=== PATIENT | male | born 1985 | race Caucasian/White ===

== ENCOUNTER 2017-10-18 21:37 | Emergency (ER) | payer SELFPAY, OTHER ==
[2017-10-18] MEDS: KETOROLAC 60 MG INJ IM (23:47)
== END 2017-10-19 02:32 | disposition home or self-care (01) ==
LOC: FTE 10-19 02:32
DX: S20.211A Contusion of right front wall of thorax, initial encounter (principal); F17.210 Nicotine dependence, cigarettes, uncomplicated; W22.09XA Striking against other stationary object, initial encounter; Y92.9 Unspecified place or not applicable
CPT/HCPCS: 71100; 96372; 99284-25